=== PATIENT | female | born 1955 | race Caucasian/White ===

== ENCOUNTER 2024-12-05 10:41 | Emergency (ER) | payer OTHER ==
[~2024-12-05] VITALS: Ht 175.3 cm; Wt 80.8 kg
[2024-12-05] MEDS ORDERED: GABA-284 PO (10:54)
[2024-12-05] MEDS ORDERED: ROSU5TAB49 PO (10:54)
[2024-12-05] MEDS ORDERED: HYDR-3713 PO (13:57)
[2024-12-05] MEDS ORDERED: MIRA3350 PO (13:57)
[2024-12-05 14:00] VITALS: BP 149/82; TEMP 97.8; O2SAT 97
[2024-12-05] MEDS: ACETAMINOPHEN 325 MG TAB PO ONE (14:04)
[2024-12-09] MEDS ORDERED: THERTAB52 PO (09:31)
[2024-12-09] MEDS ORDERED: IBUP600T42 PO (09:31)
[2024-12-09] MEDS ORDERED: ACET-907 PO (09:31)
[2024-12-09] MEDS ORDERED: GABA-1171 PO (09:31)
== END 2024-12-05 14:09 | disposition home or self-care (01) ==
LOC: M ED 10:41
DX: S52.501A Unspecified fracture of the lower end of right radius, initial encounter for closed fracture (principal); W00.9XXA Unspecified fall due to ice and snow, initial encounter; Y92.89 Other specified places as the place of occurrence of the external cause; Y93.9 Activity, unspecified; Y99.9 Unspecified external cause status

== ENCOUNTER → 2024-12-06 | Outpatient (CLI) | payer OTHER ==
[~2024-12-06] MED LIST: ACET-907 PO; GABA-1171 PO; GABA-284 PO; HYDR-3713 PO; IBUP600T42 PO; MIRA3350 PO; PERC5TAB12 PO; ROSU5TAB49 PO; THERTAB52 PO
== END ==
LOC: M SOG 08:05
PROVIDERS: ATTEND Physician Assistant
DX: M25.531 Pain in right wrist (principal); Z53.9 Procedure and treatment not carried out, unspecified reason

== ENCOUNTER 2024-12-11 08:47 | Day surgery (SDC) | payer OTHER ==
[~2024-12-11] VITALS: Ht 175.3 cm; Wt 79.7 kg
[~2024-12-11 08:47] MED LIST changes: -PERC5TAB12 PO
[2024-12-11 09:19] LABS: PLATELET COUNT, AUTOMATED 290 10^3/uL (150-450)
[2024-12-11 10:06] LABS: CALCIUM LEVEL 9.8 MG/DL (8.3-10.6); CARBON DIOXIDE LEVEL 27.0 MMOL/L (20-31); CHLORIDE LEVEL 105.0 MMOL/L (98-107); CREATININE FOR GFR 0.85 MG/DL (0.55-1.30); GLOMERULAR FILTRATION RATE 73.7 (>39); POTASSIUM SERUM 4.2 MMOL/L (3.5-5.1); SODIUM LEVEL 143.0 MMOL/L (136-145)
[2024-12-11] MEDS: LR 1,000 ML IV SCH (10:18)
[2024-12-11] MEDS ORDERED: dexAMETHasone 4 MG/ML 1 ML VIAL As Ordered ONE (10:31)
[2024-12-11] MEDS ORDERED: KETOROLAC 30 MG/ML 1 ML VIAL As Ordered ONE (10:31)
[2024-12-11] MEDS ORDERED: ONDANSETRON 4MG/2ML VIAL As Ordered ONE (10:31)
[2024-12-11] MEDS ORDERED: LIDOCAINE 2% 100 MG/5 ML SDV (FOR ANES.) As Ordered ONE (10:31)
[2024-12-11] MEDS: MIDAZOLAM INJ 2 MG/2 ML VIAL IV PRN (10:41)
[2024-12-11] MEDS: ROPIvacaine 0.5% 30ML VIAL PN ONE (10:49)
[2024-12-11] MEDS: dexAMETHasone 10 MG/1 ML VIAL PRES.FREE PN ONE (10:49)
[2024-12-11] MEDS ORDERED: dexmedeTOMIDine (4 MCG/ML) 200 MCG/50 ML BTL As Ordered ONE (11:58)
[2024-12-11] MEDS: ceFAZolin SOD 2 GM IV ONCE IV ONE (12:00)
[2024-12-11 13:00] VITALS: BP 129/64; TEMP 97.5; O2SAT 96
[2024-12-11] MEDS ORDERED: PERC5TAB12 PO (13:13)
== END 2024-12-11 13:55 | disposition home or self-care (01) ==
LOC: M SDC 08:47
PROVIDERS: ATTEND Orthopaedic Surgery Hand Surgery
DX: S52.551A Other extraarticular fracture of lower end of right radius, initial encounter for closed fracture (principal); G62.9 Polyneuropathy, unspecified; E78.00 Pure hypercholesterolemia, unspecified; W19.XXXA Unspecified fall, initial encounter; Y93.9 Activity, unspecified; Y92.9 Unspecified place or not applicable; Z79.899 Other long term (current) drug therapy
CPT/HCPCS: 25607; 36415; 76000; 80048; 85027; 93005; C1713; J0688; J1100; J1885; J2250; J2405; J2795; J3010

== ENCOUNTER → 2024-12-20 | Outpatient (CLI) | payer OTHER ==
[~2024-12-20] MED LIST changes: +PERC5TAB12 PO
== END ==
LOC: M SOG 07:24
PROVIDERS: ATTEND Physician Assistant
DX: M25.531 Pain in right wrist (principal); Z87.81 Personal history of (healed) traumatic fracture